=== PATIENT | female | born 1985 | race Caucasian/White ===

== ENCOUNTER 2016-04-21 21:44 | Emergency (ER) | payer OTHER ==
[2016-04-22] MEDS ORDERED: ONDANSETRON 4 MG VIAL ONE (02:12)
[2016-04-22] MEDS ORDERED: SODIUM CHLORIDE 0.9% 2,000 ML ONE (02:12)
[2016-04-22] MEDS ORDERED: KETOROLAC 60 MG/2 ML VIAL IM ONE (05:35)
== END 2016-04-22 06:00 | disposition home or self-care (01) ==
LOC: ER 21:44
DX: R10.13 Epigastric pain (principal); R10.84 Generalized abdominal pain; R55 Syncope and collapse; R07.89 Other chest pain
CPT/HCPCS: 36415; 71020; 76705; 80053; 81001; 82553; 83690; 84484; 84703; 85025; 87088; 93005; 96361; 96372; 96374; 99284; J2405